=== PATIENT | female | born 1990 | race Two or more races ===

== ENCOUNTER 2017-12-29 21:20 | Emergency (ER) | payer OTHER ==
[2017-12-29] MEDS ORDERED: NS 0.9% 1000 ML* 1,000 ML IV ONE (23:05)
[2017-12-29] MEDS ORDERED: LORazepam INJ* 2 MG/ML 1 ML VIAL IV PUSH ONE (23:07)
[2017-12-29 23:34] LABS: ABS Basophils 0 10^3/ul (0-0.2); ABS Eosinophils 0.2 10^3/ul (0-0.6); ABS Lymphocytes 2.2 10^3/ul (1.0-4.8); ABS Monocytes 0.6 10^3/ul (0-0.8); ABS Neutrophils 5.6 10^3/ul (1.5-7.7); ABS Nucleated RBC 0 10^3/ul; Eosinophil % 2.1 % (0-6); Hematocrit 41 % (35-47); Hemoglobin 13.9 g/dl (12.0-16.0); Lymphocyte % 25.9 % (25-47); Mean Corpuscular HGB Conc 34 g/dl (31-36); Mean Corpuscular Hemoglobin 28 pg (27-31); Mean Corpuscular Volume 83 fL (80-97); Mean Platelet Volume 7.6 um3 (7.4-10.4); Nucleated Red Blood Cells % 0.1; Platelet Count 281 10^3/ul (150-450); Red Blood Count 4.94 10^6/ul (4.00-5.40); Red Cell Distribution Width 13 % (10.5-15); White Blood Count 8.6 10^3/ul (3.5-10.8)
[2017-12-29 23:52] LABS: EGFR Non-African American 89.3 (>60)
[2017-12-30] MEDS ORDERED: Iohexol 350* (CONTRAST) 500 ML MDV IV ONE (00:01)
--- NOTE | 2017-12-30 01:41 | RAD ---
EXAM: CT Angiography Chest With Intravenous Contrast CLINICAL HISTORY: 27 years old, female; Signs and symptoms; Shortness of breath; Patient HX: Pt states that for a week she has been very short of breath and unable to ambulate far without becoming exhausted; Additional info: SOB TECHNIQUE: Axial computed tomographic angiography images of the chest with intravenous contrast using pulmonary embolism protocol. All CT scans at this facility use at least one of these dose optimization techniques: automated exposure control; mA and/or kV adjustment per patient size (includes targeted exams where dose is matched to clinical indication); or iterative reconstruction. MIP reconstructed images were created and reviewed. Coronal and sagittal reformatted images were created and reviewed. CONTRAST: 67 mL of OMNI 350 administered intravenously. COMPARISON: No relevant prior studies available. FINDINGS: Pulmonary arteries: No visible acute pulmonary embolism. Aorta: No acute findings. No thoracic aortic aneurysm. Lungs: Unremarkable. No mass. No consolidation. Pleural space: Unremarkable. No significant effusion. No pneumothorax. Heart: Unremarkable. No cardiomegaly. No significant pericardial effusion. No evidence of RV dysfunction. Bones/joints: No acute fracture. No dislocation. Soft tissues: Unremarkable. Lymph nodes: Unremarkable. No enlarged lymph nodes. IMPRESSION: No visible acute pulmonary embolism.
--- NOTE | 2017-12-30 02:27 | ED ---
HPI Chest Pain - HPI Summary HPI Summary: Patient is a 27 y/o F w/ c/o SOB and chest pain for the past week. She notes chest pain occurs with deep breaths. This chest pain is described as "dull". Patient also notes that chest pain will radiate to her back. [facility] CXR was normal, however they recommended patient come to ED to r/o PE. Hx of anxiety is denied. She denies any home medications, control , and PSHx. Patient reports exertion causes feelings of near syncope. On triage , pain is denied, nothing is noted to aggravate/alleviate Sx. Allergies reviewed. - History of Current Complaint Chief Complaint: [facility] [place] Time Seen by Provider: 12/29/17 22:49 Hx Obtained From: Patient Onset/Duration: Started Weeks Ago - onset a week ago, Still Present Timing: Intermittent - chest pain reported to occur with deep breaths, Lasting Weeks - Sx onset a week ago Current Severity: None - pain is denied on triage Pain Intensity: 0 Pain Scale Used: 0-10 Numeric - 0/10 Chest Pain Radiates: Yes Chest Pain Radiates To:: Back Character: Dull/Aching Aggravating Factor(s): Exertion - feelings of near syncope on exertion Alleviating Factor(s): Nothing Associated Signs and Symptoms: Positive: Chest Pain, Shortness of Breath, Other : - feelings of near syncope on exertion - Allergy/Home Medications Allergies/Adverse Reactions: Allergies Allergy/AdvReac Type Severity Reaction Status Date / Time No Known Allergies Allergy Verified 12/29/17 21:28 Home Medications: Home Medications NK [No Home Medications Reported] 12/30/17 [History Confirmed 12/30/17] PMH/Surg Hx/FS Hx/Imm Hx Endocrine/Hematology History: Denies: Hx Diabetes Cardiovascular History: Denies: Hx Hypertension History: Denies: Hx Renal Disease Sensory History: Denies: Hx Legally Blind Opthamlomology History: Denies: Hx Legally Blind Infectious Disease History: No Infectious Disease History: Denies: Traveled Outside the [place] in Last 30 Days - Family History Known Family History: Negative: Blood Disorder - Social History Alcohol Use: None Substance Use Type: Reports: None Smoking Status (MU): Never Smoked Tobacco Review of Systems Positive: Chest Pain Positive: Shortness Of Breath Neurological: Other - feelings of near syncope w/ exertion All Other Systems Reviewed And Are Negative: Yes Physical Exam - Summary Physical Exam Summary: VITAL SIGNS: Reviewed. GENERAL: Patient is a well-developed and nourished female who is lying comfortable in the stretcher. Patient is not in any acute respiratory distress. HEAD AND FACE: No signs of trauma. No ecchymosis, hematomas or skull depressions. No sinus tenderness. EYES: PERRLA, EOMI x 2, No injected conjunctiva, no nystagmus. EARS: Hearing grossly intact. Ear canals and tympanic membranes are within normal limits. MOUTH: Oropharynx within normal limits. NECK: Supple, trachea is midline, no adenopathy, no JVD, no carotid bruit, no c- spine tenderness, neck with full ROM. CHEST: Symmetric, no tenderness at palpation LUNGS: Clear to auscultation bilaterally. No wheezing or crackles. CVS: Regular rate and rhythm, S1 and S2 present, no murmurs or gallops appreciated. ABDOMEN: Soft, non-tender. No signs of distention. No rebound no guarding, and no masses palpated. Bowel sounds are normal. EXTREMITIES: FROM in all major joints, no edema, no cyanosis or clubbing. NEURO: Alert and oriented x 3. No acute neurological deficits. Speech is normal and follows commands. SKIN: Dry and warm Triage Information Reviewed: Yes Vital Signs On Initial Exam: Initial Vitals Temp Pulse Resp BP Pulse Ox 98.4 F 94 20 116/75 100 12/29/17 21:26 12/29/17 21:26 12/29/17 21:26 12/29/17 21:26 12/29/17 21:26 Vital Signs Reviewed: Yes Diagnostics - Vital Signs Vital Signs Temp Pulse Resp BP Pulse Ox 12/30/17 00:23 118/85 12/30/17 00:13 88 97 12/29/17 23:37 18 12/29/17 23:24 107/80 12/29/17 21:26 98.4 F 94 20 116/75 100 - Laboratory Lab Results: Lab Results 12/29/17 12/29/17 12/29/17 Range/Units 23:16 23:16 23:16 WBC 8.6 (3.5-10.8) 10^3/ul RBC 4.94 (4.00-5.40) 10^6/ul Hgb 13.9 (12.0-16.0) g/dl Hct 41 (35-47) % MCV 83 (80-97) fL MCH 28 (27-31) pg MCHC 34 (31-36) g/dl RDW 13 (10.5-15) % Plt Count 281 (150-450) 10^3/ul MPV 7.6 (7.4-10.4) um3 Neut % (Auto) 65.0 (38-83) % Lymph % (Auto) 25.9 (25-47) % Josephine % (Auto) 6.5 (0-7) % Eos % (Auto) 2.1 (0-6) % Baso % (Auto) 0.5 (0-2) % Absolute Neuts (auto) 5.6 (1.5-7.7) 10^3/ul Absolute Lymphs (auto) 2.2 (1.0-4.8) 10^3/ul Absolute Monos (auto) 0.6 (0-0.8) 10^3/ul Absolute Eos (auto) 0.2 (0-0.6) 10^3/ul Absolute Basos (auto) 0 (0-0.2) 10^3/ul Absolute Nucleated RBC 0 10^3/ul Nucleated RBC % 0.1 INR (Anticoag Therapy) 0.90 (0.77-1.02) APTT 32.1 (26.0-36.3) seconds D-Dimer, Quantitative < 200 (Less Than 230) ng/mL Sodium 139 (135-145) mmol/L Potassium 3.4 L (3.5-5.0) mmol/L Chloride 107 (101-111) mmol/L Carbon Dioxide 23 (22-32) mmol/L Anion Gap 9 (2-11) mmol/L BUN 10 (6-24) mg/dL Creatinine 0.78 (0.51-0.95) mg/dL Est GFR ( Amer) 108.0 (>60) Est GFR (Non-Af Amer) 89.3 (>60) BUN/Creatinine Ratio 12.8 (8-20) Glucose 91 (70-100) mg/dL Calcium 9.0 (8.6-10.3) mg/dL Total Bilirubin 0.40 (0.2-1.0) mg/dL AST 15 (13-39) U/L ALT 14 (7-52) U/L Alkaline Phosphatase 77 (34-104) U/L Troponin I 0.01 (<0.04) ng/mL B-Natriuretic Peptide ( - 100) pg/mL Total Protein 7.1 (6.4-8.9) g/dL Albumin 4.1 (3.2-5.2) g/dL Globulin 3.0 (2-4) g/dL Albumin/Globulin Ratio 1.4 (1-3) Beta HCG, Quant < 0.60 mIU/mL 12/29/17 Range/Units 23:16 WBC (3.5-10.8) 10^3/ul RBC (4.00-5.40) 10^6/ul Hgb (12.0-16.0) g/dl Hct (35-47) % MCV (80-97) fL MCH (27-31) pg MCHC (31-36) g/dl RDW (10.5-15) % Plt Count (150-450) 10^3/ul MPV (7.4-10.4) um3 Neut % (Auto) (38-83) % Lymph % (Auto) (25-47) % Josephine % (Auto) (0-7) % Eos % (Auto) (0-6) % Baso % (Auto) (0-2) % Absolute Neuts (auto) (1.5-7.7) 10^3/ul Absolute Lymphs (auto) (1.0-4.8) 10^3/ul Absolute Monos (auto) (0-0.8) 10^3/ul Absolute Eos (auto) (0-0.6) 10^3/ul Absolute Basos (auto) (0-0.2) 10^3/ul Absolute Nucleated RBC 10^3/ul Nucleated RBC % INR (Anticoag Therapy) (0.77-1.02) APTT (26.0-36.3) seconds D-Dimer, Quantitative (Less Than 230) ng/mL Sodium (135-145) mmol/L Potassium (3.5-5.0) mmol/L Chloride (101-111) mmol/L Carbon Dioxide (22-32) mmol/L Anion Gap (2-11) mmol/L BUN (6-24) mg/dL Creatinine (0.51-0.95) mg/dL Est GFR ( Amer) (>60) Est GFR (Non-Af Amer) (>60) BUN/Creatinine Ratio (8-20) Glucose (70-100) mg/dL Calcium (8.6-10.3) mg/dL Total Bilirubin (0.2-1.0) mg/dL AST (13-39) U/L ALT (7-52) U/L Alkaline Phosphatase (34-104) U/L Troponin I (<0.04) ng/mL B-Natriuretic Peptide 22 ( - 100) pg/mL Total Protein (6.4-8.9) g/dL Albumin (3.2-5.2) g/dL Globulin (2-4) g/dL Albumin/Globulin Ratio (1-3) Beta HCG, Quant mIU/mL Result Diagrams: 12/29/17 23:16 12/29/17 23:16 Lab Statement: Any lab studies that have been ordered have been reviewed, and results considered in the medical decision making process. - CT CTA chest/thorax CT Interpretation: No Acute Changes CT Interpretation Completed By: Radiologist - no visibly acute PE; this report was reviewed by ED physician - EKG 0005 Cardiac Rate: NL - rate of 91 bpm EKG Rhythm: Sinus Rhythm EKG Interpretation: normal axis, normal interval, no ischemic changes Re-Evaluation - Re-Evaluation First Eval Re-Evaluation Time: 02:05 Comment: Results of EKG, labs and CTA were discussed with patient. Patient will be discharged to home and follow up with PCP in 1-2 days. Patient understands and is agreeable with follow up plan. Chest Pain Course/Dx - Course Assessment/Plan: Patient is a 27 y/o F w/ c/o SOB and chest pain for the past week. She notes chest pain occurs with deep breaths. This chest pain is described as "dull". Patient also notes that chest pain will radiate to her back. [facility]. CXR was normal, however they recommended patient come to ED to r/o PE. Hx of anxiety is denied. She denies any home medications, control, and PSHx. Patient reports exertion causes feelings of near syncope. Physical exam was normal. EKG showed NSR w/ BPM 91, normal axis, normal interval, no ischemic changes. CTA chest/thorax showed no visibly acute pulmonary embolism. During ED course, patient was given Ativan 1 mg IV PUSH ED and fluids. Labs showed D-dimer <200, APTT 32.1, INR .9, BNP 22, trop .01. Results of EKG, labs and CTA were discussed with patient. Patient will be discharged to home and follow up with PCP in 1-2 days. Patient understands and is agreeable with follow up plan. Dx of atypical chest pain. - Diagnoses Provider Diagnoses: Atypical chest pain Discharge - Sign-Out/Discharge Documenting (check all that apply): Patient Departure - discharge - Discharge Plan Condition: Stable Disposition: HOME Patient Education Materials: Chest Pain (ED) Referrals: [facility] [Outside] - 2 Days Additional Instructions: RETURN TO THE EMERGENCY DEPARTMENT FOR CHANGING OR WORSENING SYMPTOMS. FOLLOW UP WITH PRIMARY CARE PHYSICIAN IN 1-2 DAYS. - Attestation Statements Document Initiated by Scribe: Yes Documenting Scribe: Moiz Esparza Provider For Whom Scribe is Documenting (Include Credential): Brigitte Nelson MD Scribe Attestation: Moiz Mendenhall , scribed for Brigitte Nelson MD on 12/30/17 at 0242.
[2017-12-30 03:14] VITALS: BP 118/74
== END 2017-12-30 02:47 | disposition home or self-care (01) ==
LOC: ED 21:20
DX: R07.89 Other chest pain (principal); R06.02 Shortness of breath
CPT/HCPCS: 36415; 71275; 80053; 83880; 84484; 84702; 85025; 85379; 85610; 85730; 93005; 96374; 99282; Q9967